=== PATIENT | female | born 1950 | race Caucasian/White ===

== ENCOUNTER 2022-04-13 11:23 | Emergency (ER) | payer OTHER ==
[2022-04-13 11:29] VITALS: RESP 19; BMI 21.7
[2022-04-13] MEDS ORDERED: FAMOTIDINE 20 MG/50 ML IVPB 20 MG/50 ML MG IVPB ONE ×3 (12:01→13:05)
[2022-04-13] MEDS ORDERED: MAG HYDROX/AL HYDROX/SIMETH 30 ML UNIT-DOSE CUP PO ONE (12:02)
[2022-04-13] MEDS ORDERED: ACETAMINOPHEN 1000 MG/100 ML BAG IVPB ONE (12:02)
[2022-04-13] MEDS ORDERED: MAG HYDROX/AL HYDROX/SIMETH 30 ML UNIT-DOSE CUP ONE ×2 (12:15→13:05)
[2022-04-13] MEDS ORDERED: ACETAMINOPHEN INJECTION 100 ML IVPB ONE ×2 (12:15→13:05)
[2022-04-13] MEDS ORDERED: MECLIZINE HCL 25 MG TABLET (FP) PO ONE (12:25)
[2022-04-13 12:49] LABS: BASO % 0.8 % (0-2.0); EOS % 2.8 % (0-4.5); HEMATOCRIT 43.6 % (32.4-45.2); HEMOGLOBIN 14.7 GM/dL (10.7-15.3); LYMPH % 28.7 % (8-40); MCH 30.9 pg (25.7-33.7); MCHC 33.7 g/dl (32.0-36.0); MEAN CELL VOLUME 91.7 fl (80-96); MEAN PLT VOLUME 8.7 fl (7.5-11.1); MONO % 8.7 % (3.8-10.2); PLATELET COUNT 271 10^3/uL (134-434); RBC 4.76 M/mm3 (3.60-5.2); RDW 12.6 % (11.6-15.6); WHITE BLOOD COUNT 8.2 K/mm3 (4.0-10.0)
[2022-04-13] MEDS ORDERED: MECLIZINE HCL 25 MG TABLET (FP) ONE (13:04)
[2022-04-13 13:13] LABS: ALBUMIN 3.6 g/dl (3.4-5.0); BLOOD UREA NITROGEN 19.2 mg/dL (7-18); CALCIUM 9.5 mg/dL (8.5-10.1)
[2022-04-13 13:17] LABS: CREATININE 1.3 mg/dL (0.55-1.3)
[2022-04-13 13:18] LABS: BILIRUBIN,TOTAL 0.4 mg/dL (0.2-1); TOT PROT 7.8 g/dl (6.4-8.2)
[2022-04-13 15:18] VITALS: BP 133/68; PULSE 72; TEMP 97.9
== END 2022-04-13 15:19 | disposition home or self-care (01) ==
LOC: JER 11:23
PROC: 3E0333Z Introduction of Anti-inflammatory into Peripheral Vein, Percutaneous Approach (ICD-10-PCS; principal; 2022-04-13)
PROC: 3E033GC Introduction of Other Therapeutic Substance into Peripheral Vein, Percutaneous Approach (ICD-10-PCS; 2022-04-13)
DX: R00.2 Palpitations (principal); R10.13 Epigastric pain; R42 Dizziness and giddiness
CPT/HCPCS: 0241U-QW; 36415; 71046-TC-FY; 80053; 84484; 85025; 93005; 93010; 99285-25

== ENCOUNTER 2022-10-25 07:40 | Emergency (ER) | payer OTHER ==
[2022-10-25 07:44] VITALS: BP 152/77; PULSE 67; RESP 17; TEMP 98.2; BMI 23.3
== END 2022-10-25 08:26 | disposition home or self-care (01) ==
LOC: JERFT 07:40 → JER 07:40 → JERFT 08:26
PROC: 0H96XZZ Drainage of Back Skin, External Approach (ICD-10-PCS; principal; 2022-10-25)
DX: L02.212 Cutaneous abscess of back [any part, except buttock and flank] (principal)
CPT/HCPCS: 10060; 99282-25

== ENCOUNTER 2022-10-28 07:36 | Emergency (ER) | payer OTHER ==
[2022-10-28 08:07] VITALS: BP 133/73; PULSE 66; RESP 18; TEMP 98.1; BMI 25.0
[2022-10-28] MEDS ORDERED: ACETAMINOPHEN 325 MG TABLET (FP) ONE (09:14)
== END 2022-10-28 09:00 | disposition left against medical advice (07) ==
LOC: JER 07:36
DX: Z48.00 Encounter for change or removal of nonsurgical wound dressing (principal); L02.212 Cutaneous abscess of back [any part, except buttock and flank]
CPT/HCPCS: 99282-25